=== PATIENT | female | born 1980 | race Caucasian/White ===

== ENCOUNTER 2020-03-22 19:39 | Emergency (ER) | payer OTHER ==
[~2020-03-22] VITALS: Ht 170.1 cm; Wt 90.7 kg
== END 2020-03-22 21:09 | disposition home or self-care (01) ==
LOC: ED 19:39
DX: M23.8X2 Other internal derangements of left knee (principal); Z91.048 Other nonmedicinal substance allergy status; Z88.6 Allergy status to analgesic agent; Z88.8 Allergy status to other drugs, medicaments and biological substances; Z91.040 Latex allergy status; Z88.1 Allergy status to other antibiotic agents; Z88.5 Allergy status to narcotic agent; X58.XXXA Exposure to other specified factors, initial encounter; Y93.44 Activity, trampolining; Y92.89 Other specified places as the place of occurrence of the external cause; Y99.8 Other external cause status

== ENCOUNTER 2020-05-10 20:05 | Emergency (ER) | payer BC, OTHER ==
[~2020-05-10] VITALS: Ht 170.1 cm; Wt 95.3 kg
== END 2020-05-11 00:21 | disposition short-term general hospital (02) ==
LOC: ED 20:05
DX: S42.402A Unspecified fracture of lower end of left humerus, initial encounter for closed fracture (principal); Z91.040 Latex allergy status; Z88.8 Allergy status to other drugs, medicaments and biological substances; Z88.5 Allergy status to narcotic agent; W19.XXXA Unspecified fall, initial encounter; Y93.89 Activity, other specified; Y92.89 Other specified places as the place of occurrence of the external cause; Y99.8 Other external cause status